=== PATIENT | male | born 1960 | race Caucasian/White ===

== ENCOUNTER 2017-04-15 09:21 | Emergency (ER) | payer BC ==
[2017-04-15 10:48] VITALS: BP 138/87
--- NOTE | 2017-04-15 11:22 | UC ---
Lower Extremity/Ankle HPI - HPI Summary HPI Summary: 56 yo male injured his left calf yesterday while skiing can bear wt but painfully has ortho appt 1/2 using his own crutches - History of Current Complaint Chief Complaint: UCLowerExtremity Stated Complaint: LOWER LEG INJURY Time Seen by Provider: 04/15/17 10:58 Hx Obtained From: Patient Onset/Duration: Sudden Onset, Lasting Hours Severity Initially: Moderate Severity Currently: Mild Pain Intensity: 4 - worse with attempts to wt bear Pain Scale Used: 0-10 Numeric Aggravating Factor(s): Standing, Ambulation Alleviating Factor(s): Rest, Elevation Able to Bear Weight: Yes - Allergies/Home Medications Allergies/Adverse Reactions: Allergies Allergy/AdvReac Type Severity Reaction Status Date / Time No Known Allergies Allergy Verified 11/03/16 13:20 Home Medications: Home Medications Alfuzosin HCl [Alfuzosin HCl ER] 10 mg PO DAILY 04/15/17 [History Confirmed ] Naproxen Sodium-Diphenhydramin [Aleve PM 220-25 mg] 1 tab PO ONCE PRN 04/15/17 [ History Confirmed 04/15/17] PMH/Surg Hx/FS Hx/Imm Hx Previously Healthy: Yes - Surgical History Surgical History: None - Family History Known Family History: Positive: Hypertension - Social History Alcohol Use: Weekly Substance Use Type: None Smoking Status (MU): Never Smoked Tobacco Review of Systems Constitutional: Negative Skin: Negative Eyes: Negative ENT: Negative Respiratory: Negative Cardiovascular: Negative Gastrointestinal: Negative Genitourinary: Negative Motor: Negative Neurovascular: Negative Musculoskeletal: Myalgia Neurological: Negative Psychological: Negative Is Patient Immunocompromised?: No All Other Systems Reviewed And Are Negative: Yes Physical Exam Triage Information Reviewed: Yes Appearance: Well-Appearing, No Pain Distress, Well-Nourished Vital Signs: Initial Vital Signs Temp 98.2 F 04/15/17 10:40 Pulse 69 04/15/17 10:40 Resp 14 04/15/17 10:40 BP 138/87 04/15/17 10:40 Pulse Ox 98 04/15/17 10:40 ENT: Positive: Hearing grossly normal. Negative: Nasal congestion, Nasal drainage, Muffled voice, Hoarse voice Neck: Positive: Supple Respiratory: Positive: Lungs clear, Normal breath sounds, No respiratory distress, No accessory muscle use Cardiovascular: Positive: RRR, No Murmur Musculoskeletal: Positive: Other: - see image Psychological Exam: Normal Skin Exam: Normal Lower Extremity Course/Dx - Differential Dx/Diagnosis Provider Diagnoses: torn medial belly of left gastrocnemius Discharge - Discharge Plan Condition: Stable Disposition: HOME Patient Education Materials: Muscle Strain (ED) Referrals: Leobardo Pinedo MD [Primary Care Provider] - Additional Instructions: I think your tore the medial belly of your left gastrocnemius muscle nicho CAM boot crutches as needed ice twice daily aleve 2 twice daily with food I had a similar injury and found a CHO-PAT COMPRESSION SLEEVE very helpful see orthopedist as planned Images Front/Back of Body, Lg ([place]): 1 - tender swollen medial belly of gastrocnemius. 1 cm >right in diameter, achilles intact/
== END 2017-04-15 11:37 | disposition home or self-care (01) ==
LOC: UCEAST 09:21
DX: S86.112A Strain of other muscle(s) and tendon(s) of posterior muscle group at lower leg level, left leg, initial encounter (principal); X50.0XXA Overexertion from strenuous movement or load, initial encounter; Y93.23 Activity, snow (alpine) (downhill) skiing, snowboarding, sledding, tobogganing and snow tubing; Y92.9 Unspecified place or not applicable; Y99.9 Unspecified external cause status; Z72.89 Other problems related to lifestyle
CPT/HCPCS: 99211; G0463